=== PATIENT | male | born 1955 | race Caucasian/White ===

== ENCOUNTER 2019-07-21 09:54 | Emergency (ER) | payer OTHER ==
[2019-07-21 10:55] VITALS: BP 132/88
--- NOTE | 2019-07-21 11:22 | ED ---
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 Patient denies fever chills cough shortness of breath. Patient states he was exposed to coronavirus positive patient last week while pt was seen at the office by nurse practitioner. But patient was not tested at the time and finally was tested a few days after and when tested it was positive. - History of Current Complaint Chief Complaint: UCGeneralIllness Time Seen by Provider: 07/21/19 10:19 Hx Obtained From: Patient Onset/Duration: Sudden Onset Associated Signs And Symptoms: Positive: Negative Cough: None - Epiglottits Risk Factors Epiglottis Risk Factors: Negative - Allergies/Home Medications Allergies/Adverse Reactions: Allergies Allergy/AdvReac Type Severity Reaction Status Date / Time Cephalosporins Allergy Unknown Verified 07/21/19 10:55 Reaction Details loracarbef [From Lorabid] Allergy unk Verified 07/21/19 10:55 Home Medications: Home Medications Escitalopram Oxalate [Lexapro] 10 mg PO DAILY 12/29/14 [History Confirmed ] L.acidoph,Paracasei, B.lactis [Probiotic] 1 tab PO DAILY 07/21/19 [History Confirmed 07/21/19] Mometasone Furoate 2 spray INH DAILY 07/21/19 [History Confirmed 07/21/19] Vit C/E/Zn/Coppr/Lutein/Zeaxan [Preservision Areds 2 Softgel] 1 tab PO DAILY [History Confirmed 07/21/19] diphenhydrAMINE HCl [Sleep Aid] 1 tab PO QPM PRN 07/21/19 [History Confirmed ] PMH/Surg Hx/FS Hx/Imm Hx - Surgical History Surgery Procedure, Year, and Place: left knee, tonsilectomy Infectious Disease History: No Infectious Disease History: Denies: Traveled Outside the [place] in Last 30 Days - Social History Alcohol Use: None Substance Use Type: Reports: None Smoking Status (MU): Never Smoked Tobacco Review of Systems Constitutional: Negative Eyes: Negative ENT: Negative Cardiovascular: Negative Respiratory: Negative Gastrointestinal: Negative Genitourinary: Negative Musculoskeletal: Negative Skin: Negative Neurological/Mental Status: Negative Psychological: Normal All Other Systems Reviewed And Are Negative: Yes Physical Exam - Summary Physical Exam Summary: Vital Signs Reviewed: Yes Gen: NAD Eye Exam: Normal Eyes: Positive: Conjunctiva Clear ENT: Normal ENT inspection Neck: Supple Respiratory: Lungs clear, Normal breath sounds. Negative: Crackles, Rhonchi, Stridor, Wheezing Cardiovascular Exam: Normal, RRR, S1, S2 Abdomen: NT/ND Musculoskeletal Exam: Normal Neurological Exam: Normal Psychological Exam: Normal Skin Exam: Normal Vital Signs On Initial Exam: Initial Vitals Temp Pulse Resp BP Pulse Ox 36.6 C 70 18 132/88 99 07/21/19 10:50 07/21/19 10:50 07/21/19 10:50 07/21/19 10:50 07/21/19 10:50 Diagnostics - Vital Signs Vital Signs Temp Pulse Resp BP Pulse Ox 07/21/19 10:50 36.6 C 70 18 132/88 99 - Laboratory Lab Statement: Any lab studies that have been ordered have been reviewed, and results considered in the medical decision making process. EENT Course/Dx - Course Assessment/Plan: Pt has NO s/s of URI or ARDS/respiratory distress. Testing was purely based on exposure to first patient that was positive for coronary virus a [facility]. Respiratory panel and COVID 19 panel sent out, await results in 3-5 days - Diagnoses Provider Diagnoses: SARS-associated coronavirus exposure Discharge ED - Sign-Out/Discharge Documenting (check all that apply): Patient Departure All imaging exams completed and their final reports reviewed: No Studies - Discharge Plan Condition: Stable Disposition: HOME Patient Education Materials: Upper Respiratory Infection (ED) Referrals: Mahad Eason MD [Primary Care Provider] - - Billing Disposition and Condition Condition: STABLE Disposition: Home
== END 2019-07-21 11:40 | disposition home or self-care (01) ==
LOC: UCEAST 09:54
DX: Z20.828 Contact with and (suspected) exposure to other viral communicable diseases (principal); Z88.1 Allergy status to other antibiotic agents; Z88.8 Allergy status to other drugs, medicaments and biological substances
CPT/HCPCS: 99203; G0463